=== PATIENT | male | born 1930 | race Caucasian/White ===

== ENCOUNTER 2017-11-17 08:32 | Inpatient (IN) | payer OTHER, MEDICAID ==
[~2017-11-17] VITALS: Ht 172.7 cm; Wt 76.7 kg
[~2017-11-17 08:32] MED LIST: AMLO10TA2 PO; CYAN1CRY PO; DONE10TA14 PO; FLUO20CA8 PO; MEMA10TA PO; OMEP-110 PO; OMEP20CA9 PO; POTA20TA37 PO; PRAZ2CAP2 PO
[2017-11-17] MEDS ORDERED: SODIUM CHLORIDE FLUSH 10ML SYR IVF ONE (09:00)
[2017-11-17 09:04] LABS: MEAN CORPUSCULAR HEMOGLOBIN 31.9 pg (27.5-34.5); MEAN CORPUSCULAR HGB CONC 33.4 g/dL (33.2-36.2); MEAN CORPUSCULAR VOLUME 95.4 fL (81-97); MEAN PLATELET VOLUME 8.6 fL (7.4-10.4); PLATELET COUNT 134 x10^3/uL (130-400); RED BLOOD COUNT 3.83 x10^6/uL (4.38-5.82); RED CELL DISTRIBUTION WIDTH 14.6 % (9.4-14.8)
[2017-11-17 09:12] LABS: INTERNATIONAL NORMALIZED RATIO 1.1 (0.93-1.1); PROTHROMBIN TIME 11.4 Seconds (9.6-11.5)
[2017-11-17 09:15] LABS: ALANINE AMINOTRANSFERASE 20 U/L (12-78); ALBUMIN 3.4 g/dL (3.4-5.0); ANION GAP 6 mmol/L (5-15); CALCIUM 8.4 mg/dL (8.5-10.1); CHLORIDE 111 mmol/L (98-107)
[2017-11-17 09:20] LABS: ALKALINE PHOSPHATASE 53 U/L (45-117); BILIRUBIN,TOTAL 1.1 mg/dL (0.2-1.0); CREATININE 1.12 mg/dL (0.7-1.3); TOTAL PROTEIN 6.7 g/dL (6.4-8.2); TROPONIN I < 0.015 ng/mL (0.000-0.045)
[2017-11-17 09:35] LABS: MD YES
[2017-11-17 09:38] LABS: BAND#(MANUAL) 0.83 x10^3/uL; BANDS%(MANUAL) 4 % (0-7); BASOS#(MANUAL) 0.21 x10^3/uL (0-0.1); BASOS% (MANUAL) 1 % (0-1); LYMPH#(MANUAL) 0.42 x10^3/uL (1-3.4); LYMPHS% (MANUAL) 2 % (22-44); METAMYELOCYTES# (MANUAL) 0.21 x10^3/uL (0-0); METAMYELOCYTES% (MANUAL) 1 % (0-1); MONOS#(MANUAL) 1.04 x10^3/uL (0.3-2.7); MONOS% (MANUAL) 5 % (2-9); SEGS% (MANUAL) 87 % (42-75)
[2017-11-17 09:39] LABS: <PLATELET ESTIMATE> ADEQUATE; <PLT MORPHOLOGY> NORMAL PLT MORPH; <RBC MORPHOLOGY> NORMAL
[2017-11-17 10:03] LABS: CULTURE INDICATED? YES; MICROSCOPIC INDICATED
[2017-11-17 10:16] LABS: AMPHETAMINE SCREEN, URINE Negative (Negative); BARBITURATE SCREEN, URINE Negative (Negative); BENZODIAZEPINE SCREEN, URINE Negative (Negative); CANNABINOID SCREEN, URINE Negative (Negative); COCAINE SCREEN, URINE Negative (Negative); METHADONE SCREEN, URINE Negative (Negative); OPIATE SCREEN, URINE Negative (Negative)
[2017-11-17] MEDS ORDERED: OMNIPAQUE 350 MG/ML, 100ML BOTTLE ONE (11:15)
[2017-11-17] MEDS ORDERED: CEFTRIAXONE PMX 1GM/50ML 50 ML IV ONE (12:00)
[2017-11-17] MEDS ORDERED: CEFTRIAXONE PMX 1GM/50ML 50 ML ONE (12:11)
[2017-11-17] MEDS ORDERED: ONDANSETRON ODT 4 MG PO PRN (13:30)
[2017-11-17] MEDS ORDERED: LABETALOL 5MG/ML, 20ML IVPush PRN (13:30)
[2017-11-17] MEDS ORDERED: ONDANSETRON 2MG/ML, 2ML IVPush PRN (13:30)
[2017-11-17 14:34] VITALS: BP 147/65
[2017-11-17 15:07] VITALS: BP 147/65
[2017-11-17 15:18] LABS: FREE T4 (FREE THYROXINE) 1.42 ng/dL (0.76-1.46); THYROID STIMULATING HORMONE 0.651 mIU/L (0.358-3.740)
[2017-11-17 15:37] LABS: FOLATE LEVEL 14.6 ng/mL (3.1-17.5); FREE T4 (FREE THYROXINE) 1.41 ng/dL (0.76-1.46); THYROID STIMULATING HORMONE 0.661 mIU/L (0.358-3.740)
[2017-11-17] MEDS: ENOXAPARIN 40 MG/0.4 ML SQ SCH (17:00)
[2017-11-17] MEDS: LACTATED RINGERS 1,000 ML IV SCH (17:52)
[2017-11-17 20:33] VITALS: BP 142/73
[2017-11-17] MEDS: OMEPRAZOLE 20 MG CAPSULE.DR PO SCH (21:21)
[2017-11-18 01:45] VITALS: BP 139/57
[2017-11-18 05:17] LABS: MEAN CORPUSCULAR HEMOGLOBIN 32.5 pg (27.5-34.5); MEAN CORPUSCULAR HGB CONC 33.7 g/dL (33.2-36.2); MEAN CORPUSCULAR VOLUME 96.5 fL (81-97); MEAN PLATELET VOLUME 9.3 fL (7.4-10.4); PLATELET COUNT 130 x10^3/uL (130-400); RED BLOOD COUNT 3.66 x10^6/uL (4.38-5.82); RED CELL DISTRIBUTION WIDTH 15.6 % (9.4-14.8)
[2017-11-18 05:19] LABS: ALBUMIN 2.9 g/dL (3.4-5.0); ANION GAP 7 mmol/L (5-15); CALCIUM 8.8 mg/dL (8.5-10.1); CHLORIDE 110 mmol/L (98-107)
[2017-11-18 05:23] LABS: ALANINE AMINOTRANSFERASE 18 U/L (12-78); ALKALINE PHOSPHATASE 49 U/L (45-117); BILIRUBIN,TOTAL 1.3 mg/dL (0.2-1.0); CREATININE 1.09 mg/dL (0.7-1.3); TOTAL PROTEIN 6.3 g/dL (6.4-8.2)
[2017-11-18] MEDS: LACTATED RINGERS 1,000 ML IV SCH ×2 (05:43→12:01)
[2017-11-18 05:44] LABS: MD YES
[2017-11-18 05:49] LABS: BAND#(MANUAL) 1.22 x10^3/uL; BANDS%(MANUAL) 5 % (0-7); LYMPH#(MANUAL) 1.22 x10^3/uL (1-3.4); LYMPHS% (MANUAL) 5 % (22-44); MONOS% (MANUAL) 7 % (2-9); SEG#(MANUAL) 20.17 x10^3/uL (1.8-6.8); SEGS% (MANUAL) 83 % (42-75)
[2017-11-18 05:51] LABS: <PLATELET ESTIMATE> ADEQUATE; <PLT MORPHOLOGY> NORMAL PLT MORPH; <RBC MORPHOLOGY> NORMAL
[2017-11-18 08:02] VITALS: BP 148/62
[2017-11-18] MEDS: DONEPEZIL 10 MG TABLET PO SCH (09:13)
[2017-11-18] MEDS: MEMANTINE 10MG TABLET PO SCH (09:14)
[2017-11-18] MEDS: FLUOXETINE HCL 20 MG CAPSULE PO SCH (09:14)
[2017-11-18] MEDS: PRAZOSIN 2 MG CAPSULE PO SCH (09:14)
[2017-11-18] MEDS: OMEPRAZOLE 20 MG CAPSULE.DR PO SCH ×2 (09:14→20:37)
[2017-11-18] MEDS: CYANOCOBALAMIN 1,000 MCG TABLET PO SCH (09:15)
[2017-11-18] MEDS ORDERED: CEFTRIAXONE PMX 1GM/50ML 50 ML IV SCH (12:00)
[2017-11-18 14:27] VITALS: BP 110/53
[2017-11-18] MEDS: ENOXAPARIN 40 MG/0.4 ML SQ SCH (16:46)
[2017-11-18 18:55] VITALS: BP 116/54
[2017-11-18] MEDS: SIMVASTATIN 20 MG TABLET PO SCH (20:37)
[2017-11-18] MEDS ORDERED: PHARMACOKINETIC MONITORING MC PRN (22:30)
[2017-11-18] MEDS ORDERED: PHARMACOKINETIC CONSULTATION MC ONE (22:30)
[2017-11-18] MEDS ORDERED: VANCOMYCIN PER PHARMACY MC PRN (22:30)
[2017-11-18] MEDS: VANCOMYCIN 1,400 MG in SODIUM CHLORIDE 0.9% 250 ML IV SCH (23:26)
[2017-11-19 02:05] VITALS: BP 140/65
[2017-11-19 05:32] LABS: CHLORIDE 111 mmol/L (98-107)
[2017-11-19 05:39] LABS: ANION GAP 7 mmol/L (5-15); CALCIUM 8.6 mg/dL (8.5-10.1); CREATININE 0.92 mg/dL (0.7-1.3)
[2017-11-19 05:42] LABS: BASOPHILS % (AUTO) 0 % (0-1); EOSINOPHILS # (AUTO) 0.01 x10^3/uL (0-0.4); EOSINOPHILS % (AUTO) 0 % (1-7); LYMPHOCYTES # (AUTO) 0.81 x10^3/uL (1-3.4); LYMPHOCYTES % (AUTO) 6 % (22-44); MD NO; MEAN CORPUSCULAR HEMOGLOBIN 32.6 pg (27.5-34.5); MEAN CORPUSCULAR HGB CONC 33.7 g/dL (33.2-36.2); MEAN CORPUSCULAR VOLUME 96.9 fL (81-97); MEAN PLATELET VOLUME 9.9 fL (7.4-10.4); MONOCYTES % (AUTO) 5 % (2-9); NEUTROPHILS # (AUTO) 12.99 x10^3/uL (1.8-6.8); NEUTROPHILS % (AUTO) 89 % (42-75); PLATELET COUNT 117 x10^3/uL (130-400); RED CELL DISTRIBUTION WIDTH 15.7 % (9.4-14.8)
[2017-11-19 06:50] VITALS: BP 178/79
[2017-11-19] MEDS: FLUOXETINE HCL 20 MG CAPSULE PO SCH (08:45)
[2017-11-19] MEDS: PRAZOSIN 2 MG CAPSULE PO SCH (08:46)
[2017-11-19] MEDS: OMEPRAZOLE 20 MG CAPSULE.DR PO SCH ×2 (08:46→21:13)
[2017-11-19] MEDS: MEMANTINE 10MG TABLET PO SCH (08:46)
[2017-11-19] MEDS: CYANOCOBALAMIN 1,000 MCG TABLET PO SCH (08:46)
[2017-11-19] MEDS: DONEPEZIL 10 MG TABLET PO SCH (08:46)
[2017-11-19] MEDS: PIPERACILLIN/TAZO/PMX 3.375GM 50 ML IV SCH ×3 (09:48→22:32)
[2017-11-19 09:58] VITALS: BP 142/68
[2017-11-19] MEDS ORDERED: hydrALAzine 20 MG/ML, 1ML IV PRN (10:30)
[2017-11-19 12:28] VITALS: BP 158/68
[2017-11-19 13:38] VITALS: BP 156/63
[2017-11-19] MEDS: ENOXAPARIN 40 MG/0.4 ML SQ SCH (16:52)
[2017-11-19 19:06] VITALS: BP 167/75
[2017-11-19] MEDS: SIMVASTATIN 20 MG TABLET PO SCH (21:13)
[2017-11-19] MEDS: VANCOMYCIN 1,400 MG in SODIUM CHLORIDE 0.9% 250 ML IV SCH (23:25)
[2017-11-20 00:55] VITALS: BP 161/62
[2017-11-20] MEDS: PIPERACILLIN/TAZO/PMX 3.375GM 50 ML IV SCH ×4 (04:00→22:32)
[2017-11-20 05:33] LABS: BASOPHILS # (AUTO) 0.02 x10^3/uL (0-0.1); BASOPHILS % (AUTO) 0 % (0-1); EOSINOPHILS # (AUTO) 0.19 x10^3/uL (0-0.4); EOSINOPHILS % (AUTO) 2 % (1-7); LYMPHOCYTES # (AUTO) 0.84 x10^3/uL (1-3.4); LYMPHOCYTES % (AUTO) 10 % (22-44); MD NO; MEAN CORPUSCULAR HEMOGLOBIN 32.6 pg (27.5-34.5); MEAN CORPUSCULAR HGB CONC 33.2 g/dL (33.2-36.2); MEAN CORPUSCULAR VOLUME 98.3 fL (81-97); MEAN PLATELET VOLUME 9.6 fL (7.4-10.4); MONOCYTES # (AUTO) 0.66 x10^3/uL (0.2-0.8); MONOCYTES % (AUTO) 8 % (2-9); NEUTROPHILS # (AUTO) 6.48 x10^3/uL (1.8-6.8); NEUTROPHILS % (AUTO) 79 % (42-75); PLATELET COUNT 136 x10^3/uL (130-400); RED BLOOD COUNT 3.55 x10^6/uL (4.38-5.82); RED CELL DISTRIBUTION WIDTH 15.8 % (9.4-14.8)
[2017-11-20 05:43] LABS: CHLORIDE 111 mmol/L (98-107)
[2017-11-20 05:47] LABS: ANION GAP 5 mmol/L (5-15); CREATININE 0.78 mg/dL (0.7-1.3)
[2017-11-20 07:47] VITALS: BP 177/77
[2017-11-20] MEDS: PRAZOSIN 2 MG CAPSULE PO SCH (08:15)
[2017-11-20] MEDS: OMEPRAZOLE 20 MG CAPSULE.DR PO SCH ×2 (08:15→21:10)
[2017-11-20] MEDS: FLUOXETINE HCL 20 MG CAPSULE PO SCH (08:15)
[2017-11-20] MEDS: CYANOCOBALAMIN 1,000 MCG TABLET PO SCH (08:16)
[2017-11-20] MEDS: MEMANTINE 10MG TABLET PO SCH (08:16)
[2017-11-20] MEDS: SIMVASTATIN 20 MG TABLET PO SCH (08:16)
[2017-11-20 13:05] VITALS: BP 123/55
[2017-11-20] MEDS: POTASSIUM CHLORIDE 20 MEQ PACKET PO SCH (17:12)
[2017-11-20] MEDS: ENOXAPARIN 40 MG/0.4 ML SQ SCH (17:12)
[2017-11-20 20:52] VITALS: BP 153/84
[2017-11-21 01:16] VITALS: BP 168/62
[2017-11-21] MEDS: PIPERACILLIN/TAZO/PMX 3.375GM 50 ML IV SCH ×3 (04:15→18:29)
[2017-11-21 06:07] LABS: ANION GAP 5 mmol/L (5-15); CALCIUM 7.9 mg/dL (8.5-10.1); CHLORIDE 111 mmol/L (98-107)
[2017-11-21 06:08] LABS: CREATININE 0.93 mg/dL (0.7-1.3)
[2017-11-21 06:48] VITALS: BP 185/79
[2017-11-21] MEDS: FLUOXETINE HCL 20 MG CAPSULE PO SCH (08:28)
[2017-11-21] MEDS: SIMVASTATIN 20 MG TABLET PO SCH (08:29)
[2017-11-21] MEDS: OMEPRAZOLE 20 MG CAPSULE.DR PO SCH ×2 (08:29→21:54)
[2017-11-21] MEDS: CYANOCOBALAMIN 1,000 MCG TABLET PO SCH (08:29)
[2017-11-21] MEDS: PRAZOSIN 2 MG CAPSULE PO SCH (08:29)
[2017-11-21] MEDS: POTASSIUM CHLORIDE 20 MEQ PACKET PO SCH (08:29)
[2017-11-21] MEDS: MEMANTINE 10MG TABLET PO SCH ×2 (09:00→15:53)
[2017-11-21] MEDS ORDERED: PIPE3.375 IV (09:33)
[2017-11-21 12:55] VITALS: BP 128/68
[2017-11-21] MEDS ORDERED: BISACODYL 10 MG SUPP ONE (15:50)
[2017-11-21] MEDS ORDERED: BISACODYL 10 MG SUPP PR PRN (16:00)
[2017-11-21] MEDS ORDERED: SIMV20TA3 PO (17:24)
[2017-11-21] MEDS: ENOXAPARIN 40 MG/0.4 ML SQ SCH (18:29)
[2017-11-21 19:03] VITALS: BP 155/77
[2017-11-22 00:09] VITALS: BP 170/77
[2017-11-22] MEDS: PIPERACILLIN/TAZO/PMX 3.375GM 50 ML IV SCH ×3 (01:08→12:39)
[2017-11-22 07:13] VITALS: BP 184/78
[2017-11-22] MEDS ORDERED: DOCUSATE 100 MG CAPSULE PO SCH (09:00)
[2017-11-22] MEDS: OMEPRAZOLE 20 MG CAPSULE.DR PO SCH (10:09)
[2017-11-22] MEDS: PRAZOSIN 2 MG CAPSULE PO SCH (10:10)
[2017-11-22] MEDS: FLUOXETINE HCL 20 MG CAPSULE PO SCH (10:10)
[2017-11-22] MEDS: CYANOCOBALAMIN 1,000 MCG TABLET PO SCH (10:10)
[2017-11-22] MEDS: MEMANTINE 10MG TABLET PO SCH (10:12)
[2017-11-22 11:11] VITALS: BP 140/66
[2017-11-22 14:30] VITALS: BP 139/68
== END 2017-11-22 16:33 | DRG 689 ==
LOC: ED 09:13 → EDIP 11:47 → 3NE 12:44 → 4EST 11-19 12:22
PROVIDERS: ADMIT Internal Medicine; ATTEND Internal Medicine
DX: N39.0 Urinary tract infection, site not specified (principal); G93.40 Encephalopathy, unspecified; B96.5 Pseudomonas (aeruginosa) (mallei) (pseudomallei) as the cause of diseases classified elsewhere; D64.9 Anemia, unspecified; R17 Unspecified jaundice; S51.811A Laceration without foreign body of right forearm, initial encounter; R00.1 Bradycardia, unspecified; I11.9 Hypertensive heart disease without heart failure; W18.39XA Other fall on same level, initial encounter; E78.5 Hyperlipidemia, unspecified; F03.90 Unspecified dementia, unspecified severity, without behavioral disturbance, psychotic disturbance, mood disturbance, and anxiety; Y93.89 Activity, other specified; Y92.89 Other specified places as the place of occurrence of the external cause; Y99.8 Other external cause status; I35.1 Nonrheumatic aortic (valve) insufficiency; K21.9 Gastro-esophageal reflux disease without esophagitis; N40.0 Benign prostatic hyperplasia without lower urinary tract symptoms; Z66 Do not resuscitate; Z85.038 Personal history of other malignant neoplasm of large intestine; Z86.19 Personal history of other infectious and parasitic diseases; Z90.49 Acquired absence of other specified parts of digestive tract
CPT/HCPCS: 36415; 70450; 71045; 74177; 80048; 80053; 80307; 81001; 82140; 82607; 82728; 82746; 83540; 83550; 83605; 83735; 84100; 84439; 84443; 84484; 85025; 85610; 87040; 87077; 87086; 87186; 93005; 93306; 99285; J0696; J1650; J2543; J3370; Q9967; J7050; J7120